=== PATIENT | female | born 1985 | race American Indian/Alaskan Native ===

== ENCOUNTER 2021-07-10 11:59 | Day surgery (SDC) | payer OTHER ==
[2021-07-07 14:59] LABS: Mean Corpuscular HGB Conc 27 % (30-34); Platelet Count 757 K/mm3 (140-440); Red Blood Count 3.79 M/mm3 (3.65-5.03)
[2021-07-07 15:05] LABS: Hematocrit 23.1 % (30.3-42.9); Hemoglobin 6.2 gm/dl (10.1-14.3); Mean Corpuscular Volume 61 fl (79-97); Red Cell Distribution Width 29.3 % (13.2-15.2)
[2021-07-07 15:16] LABS: Blood Urea Nitrogen 9 mg/dL (7-17); Calcium 9.4 mg/dL (8.4-10.2); Hemolysis Index 6
[2021-07-07 15:38] LABS: BUN/Creatinine Ratio 13
--- NOTE | 2021-07-09 21:17 | History and Physical Report ---
History of Present Illness Date of examination: 07/07/21 History of present illness: This is a 35 years old female who presents with menstrual disorder. Patient hospitalized three months ago for anemia and recieved 2 units of blood She complains of heavy bleeding, clotting, history of fibroids and fatigue, but denies irregular menses, mid-cycle spotting, lack of menses, dysmenorrhea, history of ovarian cysts, history of thyroid disease, history of PCOS, history of bleeding disorder, lightheadedness and cramping. Menses started at age 10. Interval between menses is 28 days and 30 days. Number of pads used per day is 9-10. Menstrual flow lasts > 7 days. Patient reports that for pain she uses OCP's. The symptoms began >1 year ago. She complains of menorrhagia, but denies abdominal pain, abdominal pressure, pelvic pain, pelvic pressure and intermenstrual bleeding. Treatment tried to date includes control pills. Prior to today's visit the patient has had US of pelvis. which showed multiple small myomas. Patient's symptoms when present disrupts her normal daily activities Past History : 2 Term Births: 2 Premature Births: 0 Living Children: 2 Para: 2 Mult. Births: 0 Prev : 1 Aborta: 0 Elect. Ab: 0 Spont. Ab: 0 Ectopics: 0 Current Allergies: No known allergies Past Medical History: Anemia (03/2021) Blood Transfusion (03/2021) 2 units Fibroids Past Surgical History: (2010) Tubal Ligation (2011) ?Essure Hemorrhoids Family History Summary: Other Family Member - Has No Family History of Ovarvian Cancer - Entered On: 05/28/2021 Other Family Member - Has No Family History of Colon Cancer - Entered On: 05/28/2021 Other Family Member - Has No Family History of Breast Cancer - Entered On: 05/28/2021 Other Family Member - Has Family History of Lung Cancer - Entered On: 05/28/2021 Other Family Member - Has Family History of Hypertension - Entered On: 05/28/2021 Other Family Member - Has Family History of Diabetes - Entered On: 05/28/2021 Other Family Member - Has Family History of CVA or Stroke - Entered On: 05/28/2021 Social History: Marital Status: Single Children: 2 Occupation: [employer] Risk Factors Year quit smokin Smoking pack-years: 7 Seatbelt use: 100 % 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 of genital herpes: no Hx of STD: None Review of Systems General Complains of fatigue. Denies fever, chills, sweats, anorexia, weakness, malaise, weight loss and sleep disorder. Complains of menorrhagia. Denies vaginal discharge, incontinence, dysuria, hematuria, urinary frequency, amenorrhea, abnormal vaginal bleeding, pelvic pain, genital sores, decreased libido, painful periods, painful sex, urinary urgency, hot flashes, vaginal dryness, vaginal itching and vaginal odor. CV Denies chest pains, palpitations, syncope, dyspnea on exertion, orthopnea, PND and peripheral edema. Resp Denies cough, dyspnea at rest, excessive sputum, hemoptysis, wheezing and pleurisy. GI Denies nausea, vomiting, diarrhea, constipation, change in bowel habits, abdominal pain, melena, hematochezia, jaundice, gas/bloating, indigestion/heartburn, dysphagia and odynophagia. Breast Denies left breast lump, right breast lump, nipple discharge, bloody discharge from nipple, breast pain, abnormal mammogram and breast enlargement. Psych Denies depression, anxiety, irritability and mood swings. Past History Past Medical History: other (SEE HPI) Past Surgical History: Other (SEE HPI) Social history: full code, other (SEE HPI) Medications and Allergies Allergies Allergy/AdvReac Type Severity Reaction Status Date / Time No Known Allergies Allergy Unverified 03/10/15 10:39 Home Medications Medication Instructions Recorded Confirmed Last Taken Type No Known Home Medications [No 03/10/15 07/04/21 Unknown History Reported Home Medications] Active Meds: Active Medications Lactated Ringer's (Lactated Ringers) 1,000 mls @ 125 mls/hr IV DIRECT DIOGO Review of Systems Constitutional: other (SEE HPI) Exam - Physical Exam Narrative exam: HEENT: normocephalic, no lesions or deformities Skin no significant abnormal lesions or rashes Chest: respiratory effort normal, clear to auscultation CV: regular, normal S1-S2, no murmur, no rub, no gallop Abdomen: normal bowel sounds, soft, nontender, no HSM Neuro: no gross anomalities Extremities: no clubbing, cyanosis, or edema CRYSTALIZER Exams Vulva/Vagina: no abnormalities Cervix: no abnormalities seen Uterus: enlarged uterus 8 - 10 weeks size Adnexae: no masses or tenderness Rectovaginal: exam defered - Constitutional Vitals: Temp Pulse Resp BP Pulse Ox 98.4 F 68 20 118/68 100 07/07/21 14:40 07/07/21 14:40 07/07/21 14:40 07/07/21 14:40 07/07/21 14:40 Results - Labs CBC & Chem 7: 07/07/21 06:00 07/07/21 06:00 Assessment and Plan - Patient Problems (1) Excessive and frequent menstruation with regular cycle Status: Acute Plan to address problem: Patient's symptoms when present disrupts her normal daily activities Patient desires definitive treatment Medical and surgical treatment options discussed Patient desires least invasive procedure. Patient desires endometrial ablation Discussed risks and benefits of procedure. Informed endometrial ablation does not treat dymenorrhea or myomas. Patient does not desire future fertility Discussed risk of surgery including infection, bleeding and risk of perforating her uterus. Discuused postoperative symptom of vaginal duscharge and uterine cramping. Questions answered. Patient understands and desires to proceed (2) Anemia due to chronic blood loss Status: Chronic Plan to address problem: Discussed with anesthesia the patient's hemoglobin level. Due to her over all general good health, the low likelihood that significant bleeding will occur during this procedure and the procedure should prevent further blood loss, a preoperative transfusion was not indicated. (3) Intramural leiomyoma of uterus Status: Chronic
--- NOTE | 2021-07-10 07:39 | Anesthesia Day of Surgery ---
Anesthesia Day of Surgery - Day of Surgery Patient Examined: Yes Patient H&P Reviewed: Yes Patient is NPO: Yes
--- NOTE | 2021-07-10 07:41 | Anesthesia Consultation ---
Anesthesia Consult and Med Hx Date of service: 07/10/21 - Airway Anesthetic Teeth Evaluation: Good ROM Head & Neck: Adequate Mental/Hyoid Distance: Adequate Mallampati Class: Class II Intubation Access Assessment: Good - Pulmonary Exam CTA: Yes - Cardiac Exam Cardiac Exam: RRR - Pre-Operative Health Status ASA Pre-Surgery Classification: ASA2 Proposed Anesthetic Plan: General (Discoid Lupus) - Pulmonary Hx Smoking: Yes Hx Asthma: Yes (As a child) - Central Nervous System Hx Psychiatric Problems: Yes - Hematic Hx Anemia: Yes - Other Systems Hx Alcohol Use: Yes (Occas) Hx Cancer: No
--- NOTE | 2021-07-10 08:54 | Operative Report ---
Operative Report Operative Report: Date of procedure: July 10, 2021 Pre-operative diagnosis: Menorrhagia Post-operative diagnosis: Same Procedure name(s): NovaSure endometrial ablation with hysteroscopy with dilatation curettage Surgeon: Aaron Anders MD Platinum Smith: None Anesthesia: General EBL: Minimal Complications: None Findings: Patient with thickened endometrium also apparent some indentations from intramural myoma seen Specimen(s): Endometrial curettings Procedure: Patient was brought to operating room. Where general anesthesia was induced on difficulty. She was placed in the dorsal lithotomy position. Prepped and draped in usual sterile manner. Urinary bladder was emptied with a red rubber catheter. Speculum was placed in the vagina. The cervical length and uterine cavity was then assessed with a sound. Cervical length was 3.5 cm the total uterine cavity was 9.0 cm. The hysteroscope was then placed through the cervical os. With the findings as noted above. The NovaSure was then placed through the cervical os the uterine width was then measured at the 4.4 cm. After passing the testing for cavity integrity, and NovaSure ablation was then started. The power setting was at 136 W and the procedure lasted 66 seconds. The NovaSure applicator was then removed. There was large amount of tissue on the NovaSure. Post procedure hysteroscopy showed a complete cavity ablation. Our instruments are removed. The patient tolerated the procedure well and was awakened in the operating room. Accompanied to recovery in good condition.
--- NOTE | 2021-07-10 09:05 | Short Stay Summary ---
Short Stay Documentation Date of service: 07/10/21 - History Principal diagnosis: Menorrhalgia H&P: dictated Past Medical History: other (SEE HPI) Past Surgical History: Other (SEE HPI) Social history: full code, other (SEE HPI) - Allergies and Medications Current Medications: Allergies No Known Allergies Allergy (Unverified 03/10/15 10:39) Home Medications Medication Instructions Recorded Confirmed Last Taken Type DOXYCYCLINE Hyclate [Vibramycin 100 mg PO Q12HR #14 capsule 07/10/21 Unknown Rx CAP] Ibuprofen [Motrin] 800 mg PO TID PRN #30 tablet 07/10/21 Unknown Rx Active Medications Lactated Ringer's (Lactated Ringers) 1,000 mls @ 125 mls/hr IV DIRECT DIOGO Last Admin: 07/10/21 07:45 Dose: 125 mls/hr - Physical exam General appearance: no acute distress Integumentary: no rash HEENT: Atraumatic Lungs: Normal air movement Heart: Regular rate Gastrointestinal: normal Female Genitourinary: normal Rectal Exam: deferred Extremities: no ischemia, No edema - Brief post op/procedure progress note Date of procedure: 07/10/21 (See dictated operative note) - Hospital course Hospital course: Patient was admitted underwent the above him procedure without any complications. Patient will be discharged with follow-up in office in 1-2 weeks for postop check. - Disposition Condition at discharge: Good Disposition: 01 HOME / SELF CARE / HOMELESS - Discharge Diagnoses (1) Excessive and frequent menstruation with regular cycle Status: Acute (2) Anemia due to chronic blood loss Status: Chronic (3) Intramural leiomyoma of uterus Status: Chronic Short Stay Discharge Plan Activity: advance as tolerated Diet: regular Additional Instructions: Patient to call office for any fever, chills, nausea, vomiting, excessive vaginal bleeding or pain not controlled by pain medication. Follow up with: PRIMARY CARE, [Primary Care Provider] - 7 Days Prescriptions: Ibuprofen [Motrin] 800 mg PO TID PRN #30 tablet PRN Reason: Pain DOXYCYCLINE Hyclate [Vibramycin CAP] 100 mg PO Q12HR #14 capsule
--- NOTE | 2021-07-10 11:11 | Post Anesthesia Evaluation ---
- Post Anesthesia Evaluation Patient Participated: Yes Airway Patent: Yes Stable Respiratory Function: Yes Nausea/Vomiting: No Temp > 96.8F: Yes Pain Manageable: Yes Adequeate Hydration: Yes Anesthesia Complications: No Block Receding Appropriately: Not Applicable Patient on Ventilator: No
[2021-07-10 11:24] VITALS: BP 159/84
[~2021-07-10 11:59] MED LIST: ACETAMINOPHEN 325 MG TAB PO PRN; FAMOTIDINE 20 MG/2 ML INJ IV ONE; HYDROcodone/ACETAMINOPHEN 5-325 MG TAB PO PRN; KETOROLAC 30 MG/1 ML INJ ONE; LACTATED RINGERS 1,000 ML IV SCH; LIDOCAINE MPF (2%) 20 MG/1 ML VIAL 5 ML ONE; MIDAZOLAM 2 MG/2 ML INJ ONE; ONDANSETRON 4 MG/2 ML INJ ONE; SODIUM CHLORIDE 0.9% IRR 1,500 ML BOTTLE IR ONE; SODIUM CHLORIDE 0.9% IRRIG SOLN 2000 ML IR ONE; dexAMETHasone 20 MG/5 ML VIAL ONE; fentaNYL 100 MCG/2 ML INJ ONE; propofoL 200 MG/20 ML VIAL IV ONE
== END 2021-07-10 12:00 | disposition home or self-care (01) ==
LOC: OR 11:59
PROVIDERS: ATTEND Obstetrics & Gynecology
DX: N92.0 Excessive and frequent menstruation with regular cycle (principal); D50.0 Iron deficiency anemia secondary to blood loss (chronic); D25.1 Intramural leiomyoma of uterus; J45.909 Unspecified asthma, uncomplicated; F32.9 Major depressive disorder, single episode, unspecified; F41.9 Anxiety disorder, unspecified; F17.210 Nicotine dependence, cigarettes, uncomplicated; Z72.89 Other problems related to lifestyle; Z20.822 Contact with and (suspected) exposure to COVID-19; Z79.899 Other long term (current) drug therapy; Z98.891 History of uterine scar from previous surgery; Z98.890 Other specified postprocedural states
CPT/HCPCS: 36415; 58563; 80048; 84703; 85027; 86850; 86900; 86901; 88305; J1100; J1885; J2250; J2405; J2704; J3010; J3490; J7120; U0003